=== PATIENT | male | born 1990 | race Caucasian/White ===

== ENCOUNTER 2017-12-10 13:01 | Emergency (ER) | payer OTHER ==
[2017-12-10] MEDS: HYDROCORTISONE 2.5% 28.35 GM OINT TOP (14:43)
== END 2017-12-10 14:48 | disposition home or self-care (01) ==
LOC: FTE 13:01
DX: R21 Rash and other nonspecific skin eruption (principal)
CPT/HCPCS: 99283; Z7502